=== PATIENT | female | born 1935 | race Caucasian/White ===

== ENCOUNTER → 2018-06-09 11:09 | Outpatient (CLI) | payer MEDICARE, OTHER, SELFPAY ==
[2018-06-09 12:29] LABS: Add Manual Diff / Slide Review NO; Basophils Percent Auto 1.1 % (0-2); Eosinophils Percent Auto 4.5 % (2-4); Hematocrit 38.9 % (36-46); Hemoglobin 13.2 g/dL (12.0-16.0); Lymphocytes Percent Auto 28.4 % (25-40); Mean Corpuscular HGB Conc 33.9 % (30-36); Mean Corpuscular Hemoglobin 31.2 PG (26-34); Mean Corpuscular Volume 91.9 fL (80-100); Monocytes Percent Auto 9.9 % (3-14); Neutrophils Absolute Auto 3700 /uL (3000-5900); Neutrophils Percent Auto 56.1 % (50-75); Platelet Count 176 X10^3/uL (150-400); Red Blood Cell Count 4.23 X10^6/uL (4.0-5.2); Red Cell Distribution Width 12.9 % (11.6-14.8); White Blood Cell Count 6.6 X10^3/uL (4.5-11.0)
[2018-06-09 13:07] LABS: Alanine Aminotransferase 20 IU/L (9-52); Albumin 4.4 g/dL (3.5-5.0); Alkaline Phosphatase 37 U/L (38-126); Aspartate Aminotransferase 24 IU/L (14-36); BUN Creatinine Ratio 23.8 (6-22); Bilirubin Total 0.7 mg/dL (0.2-1.3); Blood Urea Nitrogen 19 mg/dL (7-17); Calcium 9.5 mg/dL (8.4-10.2); Carbon Dioxide 32 mmol/L (22-32); Chloride 99 mmol/L (98-107); Estimated Glomerular Filt Rate > 60.0 mL/min (>60); Globulin 2.2 g/dL (1.7-4.1); Glucose 117 mg/dL (80-110); HEMOLYSIS < 15 (0-50); Potassium 4.6 mmol/L (3.4-5.1); Sodium 141 mmol/L (137-145); Total Protein 6.6 g/dL (6.3-8.2)
[2018-06-09 13:38] LABS: Thyroid Stimulating Hormone 0.63 uIU/mL (0.47-4.68)
== END ==
PROVIDERS: PCP Internal Medicine; Visit Provider Internal Medicine
DX: E11.9 Type 2 diabetes mellitus without complications (principal); E78.00 Pure hypercholesterolemia, unspecified; E03.9 Hypothyroidism, unspecified
CPT/HCPCS: 36415; 80053; 83036; 84443; 85025

== ENCOUNTER → 2018-09-10 12:05 | Outpatient (CLI) | payer MEDICARE, OTHER, SELFPAY ==
[2018-09-10 14:51] LABS: Hemoglobin A1C% w Est Avg Glu 6.3 % (4.0-6.0)
== END ==
PROVIDERS: Family Provider Internal Medicine; PCP Internal Medicine; Visit Provider Internal Medicine
DX: E11.9 Type 2 diabetes mellitus without complications (principal); I10 Essential (primary) hypertension
CPT/HCPCS: 36415; 83036

== ENCOUNTER → 2018-12-10 15:20 | Outpatient (CLI) | payer MEDICARE, OTHER, SELFPAY ==
[2018-12-10 16:32] LABS: Alanine Aminotransferase 21 IU/L (9-52); Albumin 4.4 g/dL (3.5-5.0); Albumin Globulin Ratio 1.6 (1.0-2.8); Alkaline Phosphatase 43 U/L (38-126); Aspartate Aminotransferase 21 IU/L (14-36); BUN Creatinine Ratio 26.7 (6-22); Bilirubin Total 0.7 mg/dL (0.2-1.3); Blood Urea Nitrogen 24 mg/dL (7-17); Calcium 9.4 mg/dL (8.4-10.2); Carbon Dioxide 30 mmol/L (22-32); Chloride 100 mmol/L (98-107); Estimated Glomerular Filt Rate 59.9 mL/min (>60); Globulin 2.7 g/dL (1.7-4.1); Glucose 107 mg/dL (80-110); HEMOLYSIS < 15 (0-50); Potassium 4.7 mmol/L (3.4-5.1); Sodium 140 mmol/L (137-145); Total Protein 7.1 g/dL (6.3-8.2)
[2018-12-10 16:34] LABS: Hemoglobin A1C% w Est Avg Glu 6.2 % (4.0-6.0)
[2018-12-10 17:02] LABS: TSH w/ Reflex to FT4 0.38 uIU/mL (0.47-4.68)
[2018-12-10 19:21] LABS: Free T4, Direct Thyroxine 1.62 ng/dL (0.78-2.19)
== END ==
PROVIDERS: Family Provider Internal Medicine; PCP Internal Medicine; Visit Provider Internal Medicine
DX: E11.9 Type 2 diabetes mellitus without complications (principal); E78.00 Pure hypercholesterolemia, unspecified; I10 Essential (primary) hypertension; E03.9 Hypothyroidism, unspecified
CPT/HCPCS: 36415; 80053; 83036; 84439; 84443

== ENCOUNTER → 2021-02-22 14:46 | Outpatient (CLI) | payer MEDICARE, OTHER, SELFPAY ==
[2021-02-22] MEDS: COVID-19 VACC #2, MRNA(MOD) 100 MCG/0.5 ML VIAL IM (14:52)
== END ==
PROVIDERS: Family Provider Internal Medicine; PCP Internal Medicine; Visit Provider Internal Medicine
DX: Z23 Encounter for immunization (principal)
CPT/HCPCS: 0012A; 91301

== ENCOUNTER → 2021-08-15 13:53 | Outpatient (CLI) | payer MEDICARE, OTHER, SELFPAY ==
[2021-08-15 17:00] LABS: TSH w/ Reflex to FT4 0.88 uIU/mL (0.47-4.68)
== END ==
PROVIDERS: Family Provider Internal Medicine; PCP Family Medicine; Referring Provider Family Medicine; Visit Provider Family Medicine
DX: E03.9 Hypothyroidism, unspecified (principal)
CPT/HCPCS: 36415; 84443

== ENCOUNTER → 2022-02-08 08:07 | Outpatient (CLI) | payer MEDICARE, OTHER, SELFPAY ==
[2022-02-08 10:18] LABS: Add Manual Diff / Slide Review NO; Basophils Absolute Auto 100 /uL (0-100); Basophils Percent Auto 1.8 % (0-2); Eosinophils Absolute Auto 200 /uL (0-450); Eosinophils Percent Auto 5.5 % (2-4); Hematocrit 38.7 % (36-46); Lymphocytes Absolute Auto 1200 /uL (1100-4500); Lymphocytes Percent Auto 28.7 % (25-40); Mean Corpuscular HGB Conc 33.5 % (30-36); Mean Corpuscular Hemoglobin 30.6 PG (26-34); Mean Corpuscular Volume 91.5 fL (80-100); Monocytes Absolute Auto 400 /uL (0-900); Monocytes Percent Auto 10.5 % (3-14); Neutrophils Absolute Auto 2300 /uL (1500-7000); Neutrophils Percent Auto 53.5 % (50-75); Platelet Count 154 X10^3/uL (150-400); Red Blood Cell Count 4.24 X10^6/uL (4.0-5.2); Red Cell Distribution Width 12.9 % (11.6-14.8); White Blood Cell Count 4.2 X10^3/uL (4.5-11.0)
[2022-02-08 10:26] LABS: Hemoglobin A1C% w Est Avg Glu 6.8 % (4.0-6.0)
[2022-02-08 10:36] LABS: Alanine Aminotransferase 13 IU/L (<35); Albumin 4.1 g/dL (3.5-5.0); Albumin Globulin Ratio 1.5 (1.0-2.8); Alkaline Phosphatase 35 U/L (38-126); Aspartate Aminotransferase 24 IU/L (14-36); BUN Creatinine Ratio 22.1 (6-22); Bilirubin Total 1.2 mg/dL (0.2-1.3); Blood Urea Nitrogen 19 mg/dL (7-17); Calcium 8.9 mg/dL (8.4-10.2); Carbon Dioxide 31 mmol/L (22-32); Chloride 103 mmol/L (98-107); Cholesterol 128 mg/dL (140-199); Estimated Glomerular Filt Rate > 60.0 mL/min (>60); Globulin 2.7 g/dL (1.7-4.1); Glucose 139 mg/dL (80-110); HDL Cholesterol 61 mg/dL (40-60); HEMOLYSIS < 15 (0-50); LDL Cholesterol Calculated 52 mg/dL (<100); Potassium 4.3 mmol/L (3.4-5.1); Sodium 141 mmol/L (137-145); Total Protein 6.8 g/dL (6.3-8.2); Triglycerides 73 mg/dL (35-150)
[2022-02-08 11:32] LABS: Free T4, Direct Thyroxine 1.93 ng/dL (0.78-2.19)
== END ==
PROVIDERS: Family Provider Internal Medicine; PCP Family Medicine; Referring Provider Family Medicine; Visit Provider Family Medicine
DX: E03.9 Hypothyroidism, unspecified (principal); E11.9 Type 2 diabetes mellitus without complications; E78.2 Mixed hyperlipidemia; I10 Essential (primary) hypertension; R07.89 Other chest pain
CPT/HCPCS: 36415; 80053; 80061; 83036; 84439; 84443; 85025

== ENCOUNTER 2022-05-14 05:39 | Emergency (ER) | payer MEDICARE, OTHER, SELFPAY ==
[2022-05-14] VITALS (11 sets, daily range): BP systolic 132–185; BP diastolic 71–87; PULSE 77–107; RESP 17–20; O2SAT 92–98; BMI 21.9
--- NOTE | 2022-05-14 05:45 | DI.RAD.S_ITS ---
PROCEDURE: XR CHEST 1V INDICATIONS: chest pain TECHNIQUE: One view of the chest was acquired. COMPARISON: None. FINDINGS: Surgical changes and devices: None. Lungs and pleura: Lungs are clear. No pleural effusions or pneumothorax. Mediastinum: Mediastinal contours appear normal. Heart size is normal. Bones and chest wall: No suspicious bony lesions. Overlying soft tissues appear unremarkable. IMPRESSION: No acute pulmonary process. Dictated by: Veronica Boyle M.D. on 05/14/2022 at 11:15 Approved by: Veronica Boyle M.D. on 05/14/2022 at 11:15
--- NOTE | 2022-05-14 05:56 | ED.CHESTPAIN ---
HPI - Chest Pain <Wali Good, DO - Last Filed: 05/14/22 18:45> General Chief Complaint: Chest Pain Stated Complaint: chest pain Time Seen by Provider: 05/14/22 05:43 Source: patient Mode of arrival: EMS Limitations: no limitations History of Present Illness HPI narrative: Patient is an 86-year-old female who states that approximately 1 hour prior to arrival here in the emergency department she woke from sleep with left-sided chest pressure. She stated that it did not radiate to any location. She does not know if it got worse or better with any breathing or touching the area. She has had pain like this in the past but today's pain was worse than what it has been. She is never had a heart attack before. 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 Had nitroglycerin at home that was prescribed by her primary doctor so she took 3 nitroglycerin. After taking this medication her symptoms did resolve. She was also given aspirin by EMS. Upon arrival she is asymptomatic. Related Data Home Medications Medication Instructions Recorded Confirmed CA PANTOTHENATE/FOLIC ACID/VIT 1 tab PO QDAY ##0 11/02/11 02/05/22 (MULTIVITAMIN) acetaminophen 500 mg tablet 500 mg PO DAILY PRN 05/10/21 02/05/22 (Tylenol Extra Strength) lancets 100 ea miscellaneous .1x daily 05/10/21 02/05/22 lovastatin 20 mg tablet 20 mg PO DAILY 05/10/21 02/05/22 naproxen sodium 220 mg tablet 220 mg PO DAILY PRN 05/10/21 02/05/22 (Aleve) Previous Rx's Medication Instructions Recorded levothyroxine 100 mcg tablet 100 mcg PO QDAY #90 tabs 08/16/21 oxybutynin chloride 5 mg tablet See Rx Instructions .Route 12/07/21 .COMPLEX #90 tabs amlodipine 5 mg tablet 5 mg PO DAILY #90 tabs 02/05/22 nitroglycerin 0.4 mg sublingual 0.4 mg sublingual Q5-15M PRN chest 02/05/22 tablet pain #60 tabs atenolol 100 mg tablet See Rx Instructions .Route 04/30/22 .COMPLEX #90 tabs blood sugar diagnostic #100 ea 05/10/22 metformin 500 mg tablet 500 mg PO BID #90 tabs 05/10/22 lancets #100 ea 05/14/22 Allergies Allergy/AdvReac Type Severity Reaction Status Date / Time Penicillins [PENICILLINS] Allergy Unknown Verified 02/05/22 09:51 SULFA Allergy Mild RASH Uncoded 02/05/22 09:51 Review of Systems <Wali Good DO - Last Filed: 05/14/22 18:45> Constitutional Constitutional: Reports system reviewed and no additional complaints, except as documented Cardiovascular Cardiovascular: Reports chest pain, Denies chest pain with activity, Denies rapid heart rate and Denies dyspnea Respiratory Respiratory: Denies cough and Denies dyspnea Gastrointestinal Gastrointestinal: Reports system reviewed and no additional complaints, except as documented Musculoskeletal Musculoskeletal: Reports system reviewed and no additional complaints, except as documented Integumentary/Breasts Skin/Breast: Reports system reviewed and no additional complaints, except as documented Hematologic/Lymphatic On Anticoagulants: No Patient History <Wali Good DO - Last Filed: 05/14/22 18:45> Medical History Diabetes mellitus Hyperlipidemia Hypertension Hypothyroidism Social History Smoking Status: Never smoker Smoking Status: Never smoker Exam <Wali Good DO - Last Filed: 05/14/22 18:45> Initial Vital Signs Initial Vital Signs: Vital Signs Pulse Rate 106 H 05/14/22 05:46 Respiratory Rate 18 05/14/22 05:46 Blood Pressure 132/71 05/14/22 05:46 Pulse Oximetry 92 05/14/22 05:46 Oxygen Delivery Method 05/14/22 05:46 Const General: cooperative and healthy appearing Resp Effort & Inspection: normal respiratory effort Auscultation: clear to auscultation bilaterally Cardio Rate: regular rate Rhythm: regular rhythm GI Inspection: normal to inspection and non-distended Skin General: no rashes or lesions noted Neuro General: patient alert, patient awake, patient oriented x3 and moves all extremities Extrem General: normal to inspection and capillary refill normal Psych Appearance: grossly normal <Daniella Malcolm DO - Last Filed: 05/14/22 17:44> Initial Vital Signs Initial Vital Signs: Vital Signs Pulse Rate 106 H 05/14/22 05:46 Respiratory Rate 18 05/14/22 05:46 Blood Pressure 132/71 05/14/22 05:46 Pulse Oximetry 92 05/14/22 05:46 Oxygen Delivery Method 05/14/22 05:46 Course <Wali Good DO - Last Filed: 05/14/22 18:45> Orders Ordered: ED Orders 05/14/22 05:45 XR chest 1V Stat EKG-12 Lead Stat 05/14/22 05:50 Complete Blood Count AUTO DIFF Stat Comprehensive Metabolic Panel Stat Lipase Stat Magnesium Stat Troponin & CK Cardiac Panel Stat 05/14/22 08:10 Troponin & CK Cardiac Panel Stat Vital Signs Vital signs: Vital Signs - 8 hr 05/14/22 10:11 Pulse Rate 92 H Respiratory Rate 17 Blood Pressure 170/80 H Pulse Oximetry 96 Oxygen Delivery Method Room Air <Daniella Malcolm DO - Last Filed: 05/14/22 17:44> Orders Ordered: ED Orders 05/14/22 05:45 XR chest 1V Stat EKG-12 Lead Stat 05/14/22 05:50 Complete Blood Count AUTO DIFF Stat Comprehensive Metabolic Panel Stat Lipase Stat Magnesium Stat Troponin & CK Cardiac Panel Stat 05/14/22 08:10 Troponin & CK Cardiac Panel Stat Vital Signs Vital signs: Vital Signs - 8 hr 05/14/22 10:11 Pulse Rate 92 H Respiratory Rate 17 Blood Pressure 170/80 H Pulse Oximetry 96 Oxygen Delivery Method Room Air MDM - Chest Pain <DO Shanti Moon Last Filed: 05/14/22 18:45> Lab Data Attestation: I reviewed the patient's lab results. Result diagrams: 05/14/22 05:50 05/14/22 05:50 Labs: Lab Results 05/14/22 05/14/22 05/14/22 Range/Units 05:50 05:50 08:10 WBC 6.9 (4.5-11.0) X10^3/uL RBC 4.03 (4.0-5.2) X10^6/uL Hgb 12.5 (12.0-16.0) g/dL Hct 36.8 (36-46) % MCV 91.3 (80-100) fL MCH 31.1 (26-34) PG MCHC 34.0 (30-36) % RDW 13.1 (11.6-14.8) % Plt Count 202 (150-400) X10^3/uL Neut % (Auto) 39.5 L (50-75) % Lymph % (Auto) 43.1 H (25-40) % Ulster % (Auto) 10.9 (3-14) % Eos % (Auto) 5.5 H (2-4) % Baso % (Auto) 1.0 (0-2) % Neut # (Auto) 2700 (3337-7756) /uL Lymph # (Auto) 3000 (8582-7642) /uL Ulster # (Auto) 800 (0-900) /uL Eos # (Auto) 400 (0-450) /uL Baso # (Auto) 100 (0-100) /uL Sodium 136 L (137-145) mmol/L Potassium 3.8 (3.4-5.1) mmol/L Chloride 103 (98-107) mmol/L Carbon Dioxide 26 (22-32) mmol/L BUN 21 H (7-17) mg/dL Creatinine 0.82 (0.52-1.04) mg/dL Estimated GFR > 60 (>60) mL/min BUN/Creatinine Ratio 25.6 H (6-22) Glucose 173 H (80-110) mg/dL Calcium 9.0 (8.4-10.2) mg/dL Magnesium 1.5 L (1.6-2.3) mg/dL Total Bilirubin 0.9 (0.2-1.3) mg/dL AST 26 (14-36) IU/L ALT 14 (<35) IU/L Alkaline Phosphatase 46 (38-126) U/L Total Creatine Kinase 43 40 (30-135) U/L CK-MB (CK-2) TNP TNP CK-MB (CK-2) Rel Index TNP TNP Troponin I < 0.012 0.021 (0.01-0.034) ng/mL Total Protein 6.6 (6.3-8.2) g/dL Albumin 4.1 (3.5-5.0) g/dL Globulin 2.5 (1.7-4.1) g/dL Albumin/Globulin Ratio 1.6 (1.0-2.8) Lipase 90 (23-300) U/L Imaging Data Chest x-ray: Radiologist's Impression: Left-sided pulmonary nodule which could be further assessed with CT of the chest is clinically warranted No focal consolidation or pleural effusion ECG Data Attestation: I personally reviewed and interpreted this ECG as follows: Interpretation: Sinus tachycardia Ventricular rate of 107 Occasional PVC Normal QRS Normal QTC Nonspecific ST T wave changes MDM Narrative Medical decision making narrative: 86-year-old. Is now completely asymptomatic however it did seem to resolve after taking nitroglycerin. Has nonspecific ST changes on EKG. No prior EKGs for comparison. Initial troponin negative. Had a discussion with the patient and her daughter at bedside. Patient will stay for 2nd troponin. Care turned over to Dr. Malcolm to follow-up and disposition. <Daniella Malcolm, DO - Last Filed: 05/14/22 17:44> Lab Data Labs: Lab Results 05/14/22 05/14/22 05/14/22 Range/Units 05:50 05:50 08:10 WBC 6.9 (4.5-11.0) X10^3/uL RBC 4.03 (4.0-5.2) X10^6/uL Hgb 12.5 (12.0-16.0) g/dL Hct 36.8 (36-46) % MCV 91.3 (80-100) fL MCH 31.1 (26-34) PG MCHC 34.0 (30-36) % RDW 13.1 (11.6-14.8) % Plt Count 202 (150-400) X10^3/uL Neut % (Auto) 39.5 L (50-75) % Lymph % (Auto) 43.1 H (25-40) % Ulster % (Auto) 10.9 (3-14) % Eos % (Auto) 5.5 H (2-4) % Baso % (Auto) 1.0 (0-2) % Neut # (Auto) 2700 (8770-1307) /uL Lymph # (Auto) 3000 (5850-1959) /uL Ulster # (Auto) 800 (0-900) /uL Eos # (Auto) 400 (0-450) /uL Baso # (Auto) 100 (0-100) /uL Sodium 136 L (137-145) mmol/L Potassium 3.8 (3.4-5.1) mmol/L Chloride 103 (98-107) mmol/L Carbon Dioxide 26 (22-32) mmol/L BUN 21 H (7-17) mg/dL Creatinine 0.82 (0.52-1.04) mg/dL Estimated GFR > 60 (>60) mL/min BUN/Creatinine Ratio 25.6 H (6-22) Glucose 173 H (80-110) mg/dL Calcium 9.0 (8.4-10.2) mg/dL Magnesium 1.5 L (1.6-2.3) mg/dL Total Bilirubin 0.9 (0.2-1.3) mg/dL AST 26 (14-36) IU/L ALT 14 (<35) IU/L Alkaline Phosphatase 46 (38-126) U/L Total Creatine Kinase 43 40 (30-135) U/L CK-MB (CK-2) TNP TNP CK-MB (CK-2) Rel Index TNP TNP Troponin I < 0.012 0.021 (0.01-0.034) ng/mL Total Protein 6.6 (6.3-8.2) g/dL Albumin 4.1 (3.5-5.0) g/dL Globulin 2.5 (1.7-4.1) g/dL Albumin/Globulin Ratio 1.6 (1.0-2.8) Lipase 90 (23-300) U/L ECG Data Interpretation: Sinus tachycardia Ventricular rate of 107 Occasional PVC Normal QRS Normal QTC Nonspecific ST T wave changes EKG 2. Sinus rhythm with persistent T-wave inversions in lead [address] changes mild artifact noted as well MDM Narrative Medical decision making narrative: 86-year-old. Is now completely asymptomatic however it did seem to resolve after taking nitroglycerin. Has nonspecific ST changes on EKG. No prior EKGs for comparison. Initial troponin negative. Had a discussion with the patient and her daughter at bedside. Patient will stay for 2nd troponin. Care turned over to Dr. Malcolm to follow-up and disposition. Patient seen and evaluated by myself. Patient has been chest pain-free. Blood work is overall reassuring minimal elevation in troponin and still negative. The patient was supposed to have an echocardiogram however it was never done. I have spoken with PCP loan servicing representative, order is still in and has been placed since February 05 it has yet to be scheduled. Encourage patient to have an echo and outpatient stress test. Discharge Plan Departure Patient Disposition: Home Clinical Impression: Chest pain Instructions: DI for Chest Pain Activity Restrictions/Additional Instructions: *You have been diagnosed with chest pain *What to do: Blood work today is overall reassuring however he will still need further testing such as echocardiogram and stress test. Please talk with Dr. Hernandes about this Please call [phone] to schedule your echocardiogram. *Continue to take medications as directed *Follow up with your primary care provider in 2-3 days or call [phone] *Return to ER if you should have recurring chest pain, shortness of breath or any new, worsening or concerning symptoms Prescriptions: No Action CA PANTOTHENATE/FOLIC ACID/VIT (MULTIVITAMIN) 1 tab PO QDAY Qty: 0 levothyroxine 100 mcg tablet 100 mcg PO QDAY Qty: 90 3RF Rx Instructions: take 1 tablet by mouth daily in morning on an empty stomach oxybutynin chloride 5 mg tablet See Rx Instructions .ROUTE .COMPLEX Qty: 90 3RF Dose Instruction: TAKE ONE TABLET BY MOUTH ONE TIME DAILY AT BEDTIME Rx Instructions: TAKE ONE TABLET BY MOUTH ONE TIME DAILY AT BEDTIME atenolol 100 mg tablet See Rx Instructions .ROUTE .COMPLEX Qty: 90 3RF Dose Instruction: TAKE ONE TABLET BY MOUTH ONE TIME DAILY Rx Instructions: TAKE ONE TABLET BY MOUTH ONE TIME DAILY (DME) OneTouch Ultra Blue Test Strip Strip See Rx Instructions .ROUTE .MEDSUPPLY Qty: 100 3RF Rx Instructions: Use to check blood sugars 1x daily metformin 500 mg tablet 500 mg PO BID Qty: 90 3RF (DME) lancets See Rx Instructions .Route .MEDSUPPLY Qty: 100 6RF Rx Instructions: use to check CBG 1 x a day lovastatin 20 mg tablet 20 mg PO DAILY acetaminophen [Tylenol Extra Strength] 500 mg tablet 500 mg PO DAILY PRN Rx Instructions: alternates w/aleve. naproxen sodium [Aleve] 220 mg tablet 220 mg PO DAILY PRN Rx Instructions: Alternates w/Tylenol Extra Strength lancets 100 ea miscellaneous .1x daily Rx Instructions: Uses to test blood sugars once a day nitroglycerin 0.4 mg tablet, sublingual 0.4 mg sublingual Q5-15M PRN (Reason: chest pain) Qty: 60 3RF Rx Instructions: do not exceed 3 doses per episode amlodipine 5 mg tablet 5 mg PO DAILY Qty: 90 3RF Referrals: Roly Hernandes MD [Primary Care Provider] - Visit Report Forms: Patient Portal/API
[2022-05-14 06:00] LABS: Add Manual Diff / Slide Review NO; Basophils Absolute Auto 100 /uL (0-100); Eosinophils Absolute Auto 400 /uL (0-450); Eosinophils Percent Auto 5.5 % (2-4); Hematocrit 36.8 % (36-46); Hemoglobin 12.5 g/dL (12.0-16.0); Lymphocytes Absolute Auto 3000 /uL (1100-4500); Lymphocytes Percent Auto 43.1 % (25-40); Mean Corpuscular Hemoglobin 31.1 PG (26-34); Mean Corpuscular Volume 91.3 fL (80-100); Monocytes Absolute Auto 800 /uL (0-900); Monocytes Percent Auto 10.9 % (3-14); Neutrophils Absolute Auto 2700 /uL (1500-7000); Neutrophils Percent Auto 39.5 % (50-75); Platelet Count 202 X10^3/uL (150-400); Red Blood Cell Count 4.03 X10^6/uL (4.0-5.2); Red Cell Distribution Width 13.1 % (11.6-14.8); White Blood Cell Count 6.9 X10^3/uL (4.5-11.0)
[2022-05-14 06:11] LABS: Alanine Aminotransferase 14 IU/L (<35); Albumin 4.1 g/dL (3.5-5.0); Albumin Globulin Ratio 1.6 (1.0-2.8); Alkaline Phosphatase 46 U/L (38-126); Aspartate Aminotransferase 26 IU/L (14-36); BUN Creatinine Ratio 25.6 (6-22); Bilirubin Total 0.9 mg/dL (0.2-1.3); Blood Urea Nitrogen 21 mg/dL (7-17); Carbon Dioxide 26 mmol/L (22-32); Chloride 103 mmol/L (98-107); Creatine Kinase 43 U/L (30-135); Estimated Glomerular Filt Rate > 60 mL/min (>60); Globulin 2.5 g/dL (1.7-4.1); Glucose 173 mg/dL (80-110); HEMOLYSIS < 15 (0-50); Lipase 90 U/L (23-300); Magnesium 1.5 mg/dL (1.6-2.3); Potassium 3.8 mmol/L (3.4-5.1); Sodium 136 mmol/L (137-145); Total Protein 6.6 g/dL (6.3-8.2)
[2022-05-14 06:21] LABS: Troponin I < 0.012 ng/mL (0.01-0.034)
[2022-05-14 08:31] LABS: Creatine Kinase 40 U/L (30-135)
[2022-05-14 08:45] LABS: Troponin I 0.021 ng/mL (0.01-0.034)
== END 2022-05-14 10:12 | disposition home or self-care (01) ==
PROVIDERS: Emergency Medicine; Emergency Provider Emergency Medicine; Family Provider Internal Medicine; PCP Family Medicine
DX: R07.9 Chest pain, unspecified (principal)
CPT/HCPCS: 36415; 71045; 80053; 82550; 83690; 83735; 84484; 85025; 93005; 93010; 99283; 99284

== ENCOUNTER → 2022-05-18 13:57 | Outpatient (CLI) | payer MEDICARE, OTHER, SELFPAY ==
[2022-05-18 14:34] LABS: Appearance Urine UA CLEAR; Bilirubin Urine UA NEGATIVE (NEGATIVE); Color Urine UA YELLOW; Glucose Urine UA NEGATIVE (Negative); Ketones Urine UA TRACE (NEGATIVE); Leukocyte Esterase Urine UA NEGATIVE (NEGATIVE); Nitrite Urine UA NEGATIVE (Negative); Occult Blood Urine UA NEGATIVE (Negative); Protein Urine UA TRACE (Negative); Urobilinogen Urine UA 0.2 E.U./dL (0.2); pH Urine UA 5.5 (4.5-8.0)
[2022-05-18 14:43] LABS: RBC Urine None Seen (0-5/HPF); Squamous Epithelial Cell Urine 1-5 /HPF (0-5/HPF); WBC Urine 1-5/HPF (0-5/HPF)
[2022-05-18 14:44] LABS: Amorphous Sediment Urine 1+; Bacteria Urine Occasional (0-1); Culture Indicated Urine Specimen Cultured; Mucus Urine 1+ (Negative)
== END ==
PROVIDERS: Family Provider Internal Medicine; PCP Family Medicine; Referring Provider Family Medicine; Visit Provider Family Medicine
DX: R11.0 Nausea (principal)
CPT/HCPCS: 81001; 87077; 87086

== ENCOUNTER → 2022-05-31 10:14 | Outpatient (CLI) | payer MEDICARE, OTHER, SELFPAY ==
--- NOTE | 2022-05-31 10:17 | DI.NM.S_ITS ---
PROCEDURE: NM FIDELIA PERF SPECT R&S PHARM Rest and pharmacological stress myocardial perfusion SPECT with gated imaging and ejection fraction RADIOPHARMACEUTICAL: 11.9 mCi Tc-99m tetrafosmin IV at rest and 25.6 mCi Tc-99m tetrafosmin IV at peak effect of pharmacological stress. [id number] was performed. INDICATIONS: Intermittent chest pain TECHNIQUE: Radiopharmaceutical was injected at peak stress test, and also at rest. SPECT images were obtained. SPECT myocardial perfusion images were displayed in short axis, horizontal long axis, and vertical long axis views. Gated images were reviewed using [employer] software. COMPARISON: None. CARDIAC STRESS: A pharmacologic stress test was performed under the supervision of an attending staff, using an infusion of Regadenoson. Hemodynamic data: There is normal blood pressure and heart rate response to pharmacologic stress. Symptoms: The patient denied anginal chest pain. EKG: No diagnostic changes of ischemia; no ectopy. FINDINGS: Raw data: There is good myocardial uptake of radiotracer. No significant motion artifacts. Left ventricle function: Gated images demonstrate normal left ventricular wall thickening. No segmental wall motion abnormalities. No transient ischemic dilation; TID is 0.89 (normal less than 1.3). Left ventricle resting end diastolic volume is 94 mL. Left ventricle stress ejection fraction is >75%; normal range is above 45%. Myocardial perfusion: There is normal distribution of activity in the right and left ventricular myocardium. No fixed or reversible perfusion defects. IMPRESSION: No evidence of pharmacologic induced ischemia. Hyperdynamic LV function. Dictated by: Gracie Flores D.O. on 05/31/2022 at 16:18 Approved by: Gracie Flores D.O. on 05/31/2022 at 16:20
[2022-05-31 12:00] LABS: COVID19 -Nasal RAPID Negative (Negative)
--- NOTE | 2022-05-31 14:21 | PM.TREADMILL ---
Cardiac Stress Test Report Referral & Results Date Patient Seen: 05/31/22 Requesting provider: Roly Hernandes Indication: Chest pain Rest ECG: Unremarkable Procedure Note: After both written and verbal informed consent the patient had an IV started by the diagnostic imaging RN, and then was hooked up to the treadmill monitoring system. The Lexiscan material, and then the Cardiolite tracer, were administered sequentially. An additional 3 min was spent monitoring the patient while supine on the gurney. The patient had a normal response to all infused materials. Impression: Normal response to infuse materials Please see perfusion imaging report for details regarding possible ischemia Please note: Actual ECG tracings can be found in the PACS system.
== END ==
PROVIDERS: Family Provider Internal Medicine; PCP Family Medicine; Referring Provider Family Medicine; Visit Provider Family Medicine
DX: R07.9 Chest pain, unspecified (principal); I10 Essential (primary) hypertension; E11.9 Type 2 diabetes mellitus without complications; Z20.822 Contact with and (suspected) exposure to COVID-19
CPT/HCPCS: 78452; 87635; 93016; 93017; 93018; A9502; J2785

== ENCOUNTER → 2022-09-18 12:07 | Outpatient (CLI) | payer MEDICARE, OTHER, SELFPAY ==
--- NOTE | 2022-09-18 12:10 | DI.RAD.S_ITS ---
PROCEDURE: XR HIP W PEL IF DONE RT 2V INDICATIONS: hip pain TECHNIQUE: AP pelvis with lateral view(s) of the right hip(s). COMPARISON: None. FINDINGS: Bones: No fractures or dislocations. Pelvic ring appears intact. No suspicious bony lesions. Mild right hip osteoarthritis. Soft tissues: The visualized bowel gas pattern is normal. Coarse calcifications project over the lower pelvis may represent phleboliths or fibroids. IMPRESSION: No fracture. No acute osseous lesion. If symptoms and/or clinical suspicion for pathology persists, further assessment with repeat radiographs (7-10 days) or advanced imaging (e.g. CT, MRI or bone scan) should be considered. Dictated by: Thais Polanco MD, PhD on 09/18/2022 at 14:28 Approved by: Thais Polanco MD, PhD on 09/18/2022 at 14:29
--- NOTE | 2022-09-18 12:10 | DI.RAD.S_ITS ---
PROCEDURE: XR LUMBAR SPINE 2-3V INDICATIONS: back pain TECHNIQUE: 3 views of the lumbar spine were acquired. COMPARISON: None. FINDINGS: Bones: 5 [id number] vertebrae are present. There is approximately 6 millimeters of L4-L5 degenerative anterolisthesis. Mild convex left curvature of the lumbar spine.. No vertebral body compression fractures. No suspicious bony lesions. Moderate L3-L4, L4-L5 and L5-S1 degenerative disc disease. Mild L1-L2 and L2-L3 degenerative disc disease. Moderate L4-L5 and L5-S1 facet hypertrophy. Mild L2-L3 and L3-L4 facet hypertrophy. Soft tissues: Overlying bowel gas pattern is normal. No suspicious soft tissue calcifications. IMPRESSION: 1. Multilevel degenerative disc disease. 2. Multilevel facet arthropathy. 3. No fracture. No acute osseous lesion. If symptoms and/or clinical suspicion for pathology persists, evaluation with MRI should be considered for further assessment. Dictated by: Thais Polanco MD, PhD on 09/18/2022 at 14:29 Approved by: Thais Polanco MD, PhD on 09/18/2022 at 14:32
== END ==
PROVIDERS: Family Provider Internal Medicine; PCP Family Medicine; Referring Provider Family Medicine; Visit Provider Family Medicine
DX: M16.11 Unilateral primary osteoarthritis, right hip (principal); M51.36 Other intervertebral disc degeneration, lumbar region; M51.37 Other intervertebral disc degeneration, lumbosacral region; M47.816 Spondylosis without myelopathy or radiculopathy, lumbar region; M47.817 Spondylosis without myelopathy or radiculopathy, lumbosacral region; M54.50 Low back pain, unspecified
CPT/HCPCS: 72100; 73502

== ENCOUNTER → 2022-12-13 12:28 | Outpatient (CLI) | payer MEDICARE, OTHER, SELFPAY ==
--- NOTE | 2022-12-13 12:29 | DI.ECHO.S_ITS ---
[facility] +---------+ : : [address] : : : : [id number] : : : : Phone: [phone]+ Echocardiogram Report + + :Name: RAGHU TAYLOR Study Date: 12/13/2022 Height: 66 in : :[facility] ReadingLocation: Weight: 140 lb : : Gender: Female BSA: 1.7 m2 : :: 1935 Age: 87 yrs BP: 148/84 mmHg: :Reason For Study: Intermittent chest pain : :Ordering Physician: CHARLIE, : :ALEISHA Performed By: Whitley Batres : :Referring: ALEISHA GUERRA : + + Interpretation Summary The left ventricle is normal in size and wall thickness. The ejection fraction is estimated to be 65-70%. The right ventricle is normal in size and function. There is moderate mitral regurgitation. There is moderate tricuspid regurgitation. The right ventricular systolic pressure is estimated to be at least 41.9 mmHg based on an estimated right atrial pressure of 3 mm Hg. The ascending aorta is mildly enlarged. Procedure: A two-dimensional transthoracic echocardiogram with color flow and Doppler was performed. The study quality was technically adequate. The patient was in sinus rhythm with heart rates between 64-75 bpm during the exam. Left Ventricle: The left ventricle is normal in size and wall thickness. There is no thrombus. The ejection fraction is estimated to be 65-70%. There are no focal wall motion abnormalities. MV E/A: 1.8 Med Peak E' Richie: 7.1 cm/sec E/E' med: 10.1. Right Ventricle: The right ventricle is normal in size and function. The right ventricular systolic function is normal. Atria: The left atrium is mildly dilated. Right atrial size is normal. There is no Doppler evidence for an interatrial shunt. Mitral Valve: The mitral valve leaflets appear moderately thickened, but open well. The mitral valve leaflets are slightly calcified. There is moderate mitral regurgitation. Aortic Valve: The aortic valve is normal in structure and function. The aortic valve is trileaflet. There is no aortic valve stenosis. There is trace aortic regurgitation. Tricuspid Valve: The tricuspid valve is normal. There is moderate tricuspid regurgitation. The right ventricular systolic pressure is estimated to be at least 41.9 mmHg based on an estimated right atrial pressure of 3 mm Hg. Pulmonic Valve: The pulmonic valve leaflets are thin and pliable; valve motion is normal. There is a trace or physiologic amount of pulmonic regurgitation. Great Vessels: The aortic root is normal size. The ascending aorta is mildly enlarged. The IVC is of normal diameter and collapses greater than 50% with a sniff. This suggests a low right atrial pressure of 3 mm Hg. Pericardium/ Pleura There is an anterior echo-free space consistent with a fat pad. There is a small left-sided pleural effusion. MMode/2D Measurements & Calculations LVIDd: 4.3 cm LVOT diam: 1.9 cm LVIDs: 2.6 cm Ao root diam: 3.4 cm FS: 39.5 % asc Aorta Diam: 3.9 cm EPSS: 0.10 cm IVSd: 1.0 cm LVPWd: 0.90 cm LV robles. diameter/BSA (cm/m^2): 2.5 LV sys. diameter/BSA (cm/m^2): 1.5 LA dimension: 3.6 cm RA long axis: 5.1 cm LA A2 area: 17.1 cm2 RA area: 18.2 cm2 LA A4 area: 18.1 cm2 RA vol: 55.2 ml LA length (vol): 5.0 cm RA : 32.1 ml/m2 LA vol: 52.3 ml IVC diam: 1.6 cm LA vol index: 30.4 ml/m2 RVD1 (basal): 3.1 cm LVLs ap4: 5.2 cm LVLd ap2: 6.8 cm TAPSE_phl: 2.9 cm LVLs ap2: 5.9 cm Doppler Measurements & Calculations Ao V2 max: 112.0 cm/sec LVOT Max Richie: 83.5 cm/sec Ao V2 mean: 86.0 cm/sec LV V1 max P.8 mmHg Ao max P.0 mmHg LV V1 VTI: 20.2 cm Ao mean P.0 mmHg VERONIQUE(I,D): 2.2 cm2 Ao V2 VTI: 26.6 cm VERONIQUE(V,D): 2.1 cm2 sev ratio: 0.76 VERONIQUE indexed to BSA (cm^2/m^2): 1.3 MV E max richie: 72.3 cm/sec TR max richie: 312.0 cm/sec MV A max richie: 39.3 cm/sec TR max P.9 mmHg MV E/A: 1.8 PA V2 max: 80.8 cm/sec Med Peak E' Richie: 7.1 cm/sec PA V2 mean: 51.5 cm/sec E/E' med: 10.1 PA mean P.0 mmHg Lat Peak E' Richie: 8.1 cm/sec E/E' lat: 8.9 E/e' average: 9.5 MV dec time: 0.25 sec MVA(VTI): 2.6 cm2 MV V2 mean: 44.8 cm/sec SV(LVOT): 57.3 ml MV mean P.0 mmHg MV V2 VTI: 21.9 cm AV VR_phl: 0.75 MV P1/2t-pr_phl: 72.0 msec VERONIQUE(VTI)/BSA_phl: 1.3 Reading Physician:04:23 PM
== END ==
PROVIDERS: Family Provider Internal Medicine; PCP Family Medicine; Referring Provider Family Medicine; Visit Provider Family Medicine
DX: I08.1 Rheumatic disorders of both mitral and tricuspid valves (principal); J90 Pleural effusion, not elsewhere classified; I77.89 Other specified disorders of arteries and arterioles; R07.9 Chest pain, unspecified
CPT/HCPCS: 93306

== ENCOUNTER → 2023-02-05 09:05 | Outpatient (CLI) | payer MEDICARE, OTHER, SELFPAY ==
[2023-02-05 09:58] LABS: Add Manual Diff / Slide Review NO; Basophils Absolute Auto 100 /uL (0-100); Basophils Percent Auto 1.4 % (0-2); Eosinophils Absolute Auto 300 /uL (0-450); Eosinophils Percent Auto 4.9 % (2-4); Hemoglobin 13.1 g/dL (12.0-16.0); Lymphocytes Absolute Auto 1600 /uL (1100-4500); Lymphocytes Percent Auto 28.8 % (25-40); Mean Corpuscular HGB Conc 32.8 % (30-36); Mean Corpuscular Hemoglobin 30.5 PG (26-34); Mean Corpuscular Volume 92.9 fL (80-100); Monocytes Absolute Auto 600 /uL (0-900); Neutrophils Absolute Auto 3100 /uL (1500-7000); Neutrophils Percent Auto 54.9 % (50-75); Platelet Count 193 X10^3/uL (150-400); Red Blood Cell Count 4.31 X10^6/uL (4.0-5.2); Red Cell Distribution Width 13.3 % (11.6-14.8); White Blood Cell Count 5.6 X10^3/uL (4.5-11.0)
[2023-02-05 10:06] LABS: Alanine Aminotransferase 14 IU/L (<35); Albumin 4.4 g/dL (3.5-5.0); Albumin Globulin Ratio 1.5 (1.0-2.8); Alkaline Phosphatase 43 U/L (38-126); Aspartate Aminotransferase 21 IU/L (14-36); Blood Urea Nitrogen 16 mg/dL (7-17); Calcium 9.2 mg/dL (8.4-10.2); Carbon Dioxide 32 mmol/L (22-32); Chloride 100 mmol/L (98-107); Cholesterol 154 mg/dL (140-199); Estimated Glomerular Filt Rate > 60 mL/min (>60); Globulin 2.9 g/dL (1.7-4.1); Glucose 146 mg/dL (80-110); HDL Cholesterol 69 mg/dL (40-60); HEMOLYSIS < 15 (0-50); LDL Cholesterol Calculated 67 mg/dL (<100); Potassium 3.8 mmol/L (3.4-5.1); Sodium 140 mmol/L (137-145); Total Protein 7.3 g/dL (6.3-8.2); Triglycerides 90 mg/dL (35-150)
[2023-02-05 10:33] LABS: TSH w/ Reflex to FT4 4.15 uIU/mL (0.47-4.68)
[2023-02-05 11:24] LABS: Creatinine Urine Random 84.5 mg/dL
[2023-02-05 11:27] LABS: Microalbumi Creatinin Ratio Ur 23.6 ug/mg CR (<30)
== END ==
PROVIDERS: Family Provider Internal Medicine; PCP Family Medicine; Referring Provider Family Medicine; Visit Provider Family Medicine
DX: E03.9 Hypothyroidism, unspecified (principal); E78.5 Hyperlipidemia, unspecified; E11.9 Type 2 diabetes mellitus without complications; I10 Essential (primary) hypertension; I34.0 Nonrheumatic mitral (valve) insufficiency
CPT/HCPCS: 36415; 80053; 80061; 82043; 82570; 83036; 84443; 85025

== ENCOUNTER → 2023-11-28 08:44 | Outpatient (CLI) | payer MEDICARE, OTHER, SELFPAY ==
[2023-11-28 09:45] LABS: Add Manual Diff / Slide Review NO; Basophils Absolute Auto 100 /uL (0-100); Basophils Percent Auto 2.1 % (0-2); Eosinophils Absolute Auto 300 /uL (0-450); Hematocrit 38.5 % (36-46); Hemoglobin 12.8 g/dL (12.0-16.0); Lymphocytes Absolute Auto 1500 /uL (1100-4500); Lymphocytes Percent Auto 30.1 % (25-40); Mean Corpuscular HGB Conc 33.4 % (30-36); Mean Corpuscular Hemoglobin 30.6 PG (26-34); Mean Corpuscular Volume 91.7 fL (80-100); Monocytes Absolute Auto 500 /uL (0-900); Monocytes Percent Auto 10.4 % (3-14); Neutrophils Absolute Auto 2600 /uL (1500-7000); Neutrophils Percent Auto 51.4 % (50-75); Platelet Count 186 X10^3/uL (150-400); Red Cell Distribution Width 13.9 % (11.6-14.8); White Blood Cell Count 5.1 X10^3/uL (4.5-11.0)
[2023-11-28 10:01] LABS: Alanine Aminotransferase 12 IU/L (<35); Albumin 4.2 g/dL (3.5-5.0); Albumin Globulin Ratio 1.5 (1.0-2.8); Alkaline Phosphatase 40 U/L (38-126); Aspartate Aminotransferase 21 IU/L (14-36); BUN Creatinine Ratio 18.1 (6-22); Blood Urea Nitrogen 13 mg/dL (7-17); Calcium 9.1 mg/dL (8.4-10.2); Carbon Dioxide 30 mmol/L (22-32); Chloride 101 mmol/L (98-107); Cholesterol 155 mg/dL (140-199); Estimated Glomerular Filt Rate > 60 mL/min (>60); Globulin 2.8 g/dL (1.7-4.1); Glucose 156 mg/dL (80-110); HDL Cholesterol 64 mg/dL (40-60); HEMOLYSIS < 15 (0-50); LDL Cholesterol Calculated 77 mg/dL (<100); Potassium 3.6 mmol/L (3.4-5.1); Sodium 138 mmol/L (137-145); Triglycerides 68 mg/dL (35-150)
[2023-11-28 10:30] LABS: TSH w/ Reflex to FT4 3.48 uIU/mL (0.47-4.68)
[2023-11-28 13:19] LABS: Creatinine Urine Random 221.5 mg/dL
[2023-11-28 13:39] LABS: Microalbumi Creatinin Ratio Ur 120.9 ug/mg CR (<30); Microalbumin Urine Random 26.8 mg/dL (0-1.6)
== END ==
PROVIDERS: Family Provider Internal Medicine; PCP Family Medicine; Referring Provider Family Medicine; Visit Provider Family Medicine
DX: I34.0 Nonrheumatic mitral (valve) insufficiency (principal); E11.9 Type 2 diabetes mellitus without complications; E78.2 Mixed hyperlipidemia; E03.9 Hypothyroidism, unspecified; I10 Essential (primary) hypertension
CPT/HCPCS: 36415; 80053; 80061; 82043; 82570; 83036; 84443; 85025

== ENCOUNTER → 2024-02-25 08:09 | Outpatient (CLI) | payer MEDICARE, OTHER, SELFPAY ==
[2024-02-25 09:13] LABS: Hemoglobin A1C% w Est Avg Glu 7.4 % (4.0-6.0)
[2024-02-25 09:28] LABS: Alanine Aminotransferase 11 IU/L (<35); Albumin 4.2 g/dL (3.5-5.0); Albumin Globulin Ratio 1.6 (1.0-2.8); Alkaline Phosphatase 47 U/L (38-126); Aspartate Aminotransferase 21 IU/L (14-36); BUN Creatinine Ratio 18.3 (6-22); Blood Urea Nitrogen 15 mg/dL (7-17); Calcium 9.2 mg/dL (8.4-10.2); Carbon Dioxide 29 mmol/L (22-32); Chloride 104 mmol/L (98-107); Cholesterol 152 mg/dL (140-199); Estimated Glomerular Filt Rate > 60 mL/min (>60); Globulin 2.6 g/dL (1.7-4.1); Glucose 158 mg/dL (80-110); HDL Cholesterol 61 mg/dL (40-60); HEMOLYSIS < 15 (0-50); LDL Cholesterol Calculated 74 mg/dL (<100); Potassium 3.7 mmol/L (3.4-5.1); Sodium 138 mmol/L (137-145); Total Protein 6.8 g/dL (6.3-8.2); Triglycerides 83 mg/dL (35-150)
[2024-02-25 10:41] LABS: Creatinine Urine Random 66.9 mg/dL
[2024-02-25 11:37] LABS: Microalbumi Creatinin Ratio Ur 922.2 ug/mg CR (<30); Microalbumin Urine Random 61.7 mg/dL (0-1.6)
== END ==
LOC: LAB 08:11
PROVIDERS: Family Provider Family Medicine; PCP Family Medicine; Referring Provider Family Medicine; Visit Provider Family Medicine
DX: M54.2 Cervicalgia (principal); E11.9 Type 2 diabetes mellitus without complications; G89.29 Other chronic pain; E78.5 Hyperlipidemia, unspecified; E03.9 Hypothyroidism, unspecified; I10 Essential (primary) hypertension
CPT/HCPCS: 36415; 80053; 80061; 82043; 82570; 83036

== ENCOUNTER → 2024-05-28 08:36 | Outpatient (CLI) | payer MEDICARE, OTHER, SELFPAY ==
[2024-05-28 09:54] LABS: Creatinine Urine Random 136.68 mg/dL
[2024-05-28 09:59] LABS: Microalbumin Urine Random 9.5 mg/dL (0-1.6)
[2024-05-28 10:34] LABS: Alanine Aminotransferase 10 IU/L (<35); Albumin 3.9 g/dL (3.5-5.0); Albumin Globulin Ratio 1.5 (1.0-2.8); Alkaline Phosphatase 54 U/L (38-126); Aspartate Aminotransferase 21 IU/L (14-36); BUN Creatinine Ratio 19.8 (6-22); Bilirubin Total 1.4 mg/dL (0.2-1.3); Blood Urea Nitrogen 16 mg/dL (7-17); Calcium 9.2 mg/dL (8.4-10.2); Carbon Dioxide 30 mmol/L (22-32); Chloride 103 mmol/L (98-107); Estimated Glomerular Filt Rate > 60 mL/min (>60); Globulin 2.6 g/dL (1.7-4.1); Glucose 149 mg/dL (80-110); HEMOLYSIS < 15 (0-50); Potassium 3.9 mmol/L (3.4-5.1); Sodium 139 mmol/L (137-145); Total Protein 6.5 g/dL (6.3-8.2)
[2024-05-28 12:45] LABS: Hemoglobin A1C% w Est Avg Glu 6.9 % (4.0-6.0)
== END ==
PROVIDERS: Family Provider Family Medicine; PCP Family Medicine; Referring Provider Family Medicine; Visit Provider Family Medicine
DX: E11.9 Type 2 diabetes mellitus without complications (principal); R26.89 Other abnormalities of gait and mobility; M54.30 Sciatica, unspecified side; M54.2 Cervicalgia; G89.29 Other chronic pain; I10 Essential (primary) hypertension; E03.9 Hypothyroidism, unspecified; R80.9 Proteinuria, unspecified
CPT/HCPCS: 36415; 80053; 82043; 82570; 83036

== ENCOUNTER → 2025-05-21 13:12 | Outpatient (CLI) | payer MEDICARE, OTHER, SELFPAY ==
[2025-05-21 14:04] LABS: Add Manual Diff / Slide Review NO; Hematocrit 40.1 % (36-46); Hemoglobin 13.4 g/dL (12.0-16.0); Lymphocytes Absolute Auto 1500 /uL (1100-4500); Mean Corpuscular HGB Conc 33.3 % (30-36); Mean Corpuscular Hemoglobin 31.0 PG (26-34); Mean Corpuscular Volume 93.1 fL (80-100); Platelet Count 191 X10^3/uL (150-400)
[2025-05-21 14:17] LABS: Hemoglobin A1C% w Est Avg Glu 6.4 % (4.0-6.0)
[2025-05-21 14:25] LABS: Alanine Aminotransferase 11 IU/L (<35); Albumin 4.4 g/dL (3.5-5.0); Albumin Globulin Ratio 1.8 (1.0-2.8); Alkaline Phosphatase 45 U/L (38-126); Blood Urea Nitrogen 17 mg/dL (7-17); Calcium 9.4 mg/dL (8.4-10.2); Carbon Dioxide 31 mmol/L (22-32); Chloride 100 mmol/L (98-107); Estimated Glomerular Filt Rate 55 mL/min (>60); Globulin 2.5 g/dL (1.7-4.1); Glucose 157 mg/dL (70-99); HEMOLYSIS < 15 (0-50); Potassium 4.6 mmol/L (3.4-5.1); Sodium 138 mmol/L (137-145); Total Protein 6.9 g/dL (6.3-8.2)
[2025-05-21 14:56] LABS: TSH w/ Reflex to FT4 0.51 uIU/mL (0.47-4.68)
== END ==
PROVIDERS: PCP Family Medicine; Referring Provider Family Medicine; Visit Provider Family Medicine
DX: I10 Essential (primary) hypertension (principal); E11.9 Type 2 diabetes mellitus without complications; E03.9 Hypothyroidism, unspecified; E78.2 Mixed hyperlipidemia
CPT/HCPCS: 36415; 80053; 83036; 84443; 85025